=== PATIENT | male | born 1995 | race Caucasian/White ===

== ENCOUNTER 2024-06-28 09:39 | Emergency (ER) | payer BC, SELFPAY ==
--- NOTE | ~2024-06-28 | CT_ITS ---
CLINICAL INDICATION: Right flank pain COMPARISON: None. TECHNIQUE: Multiple contiguous axial images of the abdomen and pelvis were performed following the ad ministration of with 100 mL Omnipaque-350 intravenous contrast The dose-length product (DLP) was 308.40 mGy-cm. Automated exposure control and iterative reconstruction technique were employed. FINDINGS/OBSERVATIONS: Visualized lower thorax: The bilateral lung bases are clear. The heart is of normal size, without pericardial effusion. Small hiatal hernia is present. Liver: The liver enhances homogeneously measuring 16 cm in longitudinal dimension. Gallbladder and biliary system: The gallbladder is only minimally distended, and otherwise unremarkable. Pancreas: The pancreas enhances homogeneously without ductal dilatation. Spleen: The spleen enhances homogeneously and is not enlarged measuring 11 cm in longitudinal dimension. Kidneys: The bilateral kidneys enhance symmetrically without hydronephrosis or renal calculi. Adrenal glands: Unremarkable. Gastrointestinal tract: Mural thickening within the cecum and ascending colon (and within the transverse colon to a lesser de gree) with prominence of the adjacent vasa recta - findings suggesting a focal enteritis. Appendix: The air-filled appendix is of normal caliber (axial series, images 102 - 133). Vasculature: Unremarkable. No aneurysmal dilatation or significant stenosis. Lymph nodes: No pathologically enlarged or morphologically suspicious lymph nodes within the retroperitoneum or at the root of the mesentery. Pelvic structures: The bladder is only minimally distended, and otherwise unremarkable. The prostate gland is not enlarged. Body wall and musculoskeletal: Small fat-containing umbilical hernia. No significant degenerative disease within the lower thoracic or lumbosacral spine. IMPRESSION: Findings suggesting a focal enteritis within the proximal to mid colon. Follow-up to resolution is re commended. No obstructive uropathy. Normal appendix. Reviewed, dictated and finalized at location A. HYSICS SCIENTIST IMPRESSION: Findings suggesting a focal enteritis within the proximal to mid colon. Follow- up to resolution is recommended. No obstructive uropathy. Normal appendix.
[2024-06-28 09:46] VITALS: BP 121/73; PULSE 59; RESP 18; TEMP 36.5; O2SAT 100
[2024-06-28 11:30] VITALS: BP 118/71; PULSE 55; RESP 16; O2SAT 100
[2024-06-28 12:05] VITALS: BP 122/84; PULSE 61; RESP 16; O2SAT 100
[2024-06-28 12:12] LABS: Basophils Percent Auto 0.5 % (0.2-1.2); Eosinophils Absolute Auto 0.1 K/mm3 (0-0.3); Eosinophils Percent Auto 1.4 % (0-4.4); Hematocrit 41.4 % (42.0-52.0); Hemoglobin 14.1 g/dL (14.0-18.0); Immature Granulocyte Absolute 0.01 K/mm3 (0.00-0.031); Immature Granulocyte Percent A 0.3 % (0-0.5); Lymphocytes Absolute Auto 1.18 K/mm3 (0.9-3.2); Lymphocytes Percent Auto 32.2 % (18.3-44.2); Mean Corpuscular HGB Conc 34.1 g/dl (32-36); Mean Corpuscular Hemoglobin 31.5 pg (26-34); Mean Corpuscular Volume 92.4 fl (80-100); Mean Platelet Volume 9.2 fl (7.4-10.4); Monocytes Absolute Auto 0.4 K/mm3 (0.1-0.6); Monocytes Percent Auto 9.5 % (2.6-8.5); Neutrophils Absolute Auto 2.1 K/mm3 (1.3-6.7); Neutrophils Percent Auto 56.1 % (45.5-73.1); Platelet Count Result 265 k/mm3 (150-375); Red Blood Count 4.48 M/mm3 (4.6-6.20); Red Cell Distribution Width 12.3 % (11.5-14.5); White Blood Count 3.7 K/mm3 (4.5-10.0)
[2024-06-28] MEDS: KETOROLAC 15 MG/ML VIAL (*BKC) IV PUSH (12:25)
[2024-06-28 12:27] LABS: Alanine Aminotransferase 19 U/L (6-50); Albumin Level 4.7 g/dL (3.5-5.1); Alkaline Phosphatase 62 U/L (38-126); Anion Gap 5 mmol/L (4-12); Aspartate Amino Transferase 22 U/L (17-59); Bilirubin,Total 1.1 mg/dL (0.2-1.3); Blood Urea Nitrogen 10 mg/dL (9-20); Calcium 9.5 mg/dL (8.4-10.2); Carbon Dioxide 29 mmol/L (22-30); Chloride 103 mmol/L (98-107); Estimated CRCL calculation 127 ml/min; Estimated Glomerular Filt Rate > 60; Glucose 97 mg/dL (65-110); Lipase 88 U/L (23-300); Potassium 4.4 mmol/L (3.4-5.0); Sodium 137 mmol/L (137-145)
[2024-06-28 12:30] VITALS: BP 122/81; PULSE 57; RESP 16; O2SAT 100
[2024-06-28 14:11] LABS: Add Urine Microscopic? NO; Appearance Urine Clear (Clear); Bilirubin Urine Negative (Negative); Blood Urine Negative (Negative); Color Urine Yellow (Yellow); Glucose Urine UA Negative (Negative); Ketones Urine Negative (Negative); Leukocyte Esterase Ur Negative LEU/UL (Negative); Nitrate Urine Negative (Negative); Protein Urine Negative (Negative); Specific Grav Ur > 1.045 (1.001-1.035)
[2024-06-28 14:22] VITALS: BP 128/81; PULSE 63; RESP 16; O2SAT 100
--- NOTE | 2024-06-28 14:31 | ED_ITS ---
HPI - Abdominal Pain General Chief Complaint: Abdominal Pain Stated Complaint: abd pain/ back pain Time Seen by Provider: 06/28/24 11:52 History of Present Illness HPI narrative: Patient is a 28-year-old male who presents ER with abdominal pain. Fullness and cramping in the abdomen but has begun to hurt more on the left side. Has concerns for diverticulitis. Patient has history of celiac disease and had a biopsy on endoscopy 5 years ago. He is currently about to status care with [facility] because he has been having recurrent abdominal cramping. Reports has increased pain with eating and drinking. He has had decreased bowel movements due to inability to eat. No fevers or chills or sweats. No family history of inflammatory bowel disease in a direct relatives but has cousins with myriad of autoimmune conditions. His mother does have asymptomatic celiac. He reports he has been following a strict diet. Reports he may have had a sesame seed recently. He has taken some Gas-X with mild relief. Related Data Allergies Allergy/AdvReac Type Severity Reaction Status Date / Time No Known Allergies Allergy Unknown Verified 06/28/24 09:46 Review of Systems 2 Review of Systems: All systems reviewed & are unremarkable except as noted in HPI and below Constitutional: Constitutional: Reports no additional constitutional complaints ENT: Reports system reviewed and no additional complaints, except as documented Cardiovascular: Cardiovascular: Reports no additional cardiovascular complaints Respiratory: Respiratory: Reports no additional respiratory complaints Gastrointestinal: Gastrointestinal: Reports abdominal pain, Reports bloating, Reports diarrhea, Reports nausea and Denies vomiting Genitourinary: Genitourinary: Reports no additional male genitourinary complaints COUNTS INCLUDE 234 BEDS AT THE [facility] Past Medical History Medical History (Updated 06/28/24 @ 14:35 by Clarke Fenton MD) Celiac disease Surgical History Surgical History (Updated 06/28/24 @ 14:33 by Clarke Fenton MD) History of endoscopy Family History Family History (Updated 01/26/16 @ 23:19 by DOCTOR UNKNOWN) Father Hypertension Family history of elevated blood lipids Family history of coronary artery disease Grandparent Malignant neoplasm of prostate Family history of malignant neoplasm of male breast Social History Social History Smoking status: Never smoker Alcohol intake: never Exam 2 Narrative: GENERAL: Well-appearing, well-nourished, and in no acute distress. HEAD: Normocephalic, atraumatic. CHEST: Clear to auscultation. No respiratory distress. HEART: Regular rate and rhythm. Normal peripheral pulses. ABDOMEN: Soft, mildly tender palpation left lower quadrant and left upper quadrant, nondistended. EXTREMITIES: Normal range of motion. No edema. SKIN: Warm, dry, no rash. NEURO: Alert and oriented x3. PSYCH: Normal mood and affect. Course Course Emergency Course: CMP unremarkable. CBC with normal hemoglobin and mildly depressed white blood cell count. CT scan with focal enteritis. May be related to celiac, could be related to an undiagnosed inflammatory bowel disease. Will place on oral steroids for the next week to see if he has improvement. Recommend outpatient follow-up with GI. Vital Signs Vital signs: Vital Signs Temperature 97.7 F 06/28/24 09:46 Pulse Rate 59 L 06/28/24 09:46 Respiratory Rate 18 06/28/24 09:46 Blood Pressure 121/73 06/28/24 09:46 Pulse Oximetry 100 06/28/24 09:46 Temperature 97.7 F 06/28/24 09:46 Pulse Rate 63 06/28/24 14:22 Respiratory Rate 16 06/28/24 14:22 Blood Pressure 128/81 06/28/24 14:22 Pulse Oximetry 100 06/28/24 14:22 Oxygen Delivery Room Air 06/28/24 12:05 MDM - Abdominal Pain Lab Data 06/28/24 12:07 06/28/24 12:07 Labs: Lab Results 06/28/24 06/28/24 Range/Units 12:07 13:51 WBC 3.7 L (4.5-10.0) K/mm3 RBC 4.48 L (4.6-6.20) M/mm3 Hgb 14.1 (14.0-18.0) g/dL Hct 41.4 L (42.0-52.0) % MCV 92.4 (80-100) fl MCH 31.5 (26-34) pg MCHC 34.1 (32-36) g/dl RDW 12.3 (11.5-14.5) % Plt Count 265 (150-375) k/mm3 MPV 9.2 (7.4-10.4) fl Immature Gran % (Auto) 0.3 (0-0.5) % Neut % (Auto) 56.1 (45.5-73.1) % Lymph % (Auto) 32.2 (18.3-44.2) % Lake % (Auto) 9.5 H (2.6-8.5) % Eos % (Auto) 1.4 (0-4.4) % Baso % (Auto) 0.5 (0.2-1.2) % Lymph # (Auto) 1.18 (0.9-3.2) K/mm3 Lake # (Auto) 0.4 (0.1-0.6) K/mm3 Eos # (Auto) 0.1 (0-0.3) K/mm3 Baso # (Auto) 0.0 (0.0-0.1) K/mm3 Abs Immat Gran (auto) 0.01 (0.00-0.031) K/mm3 Absolute Neuts (auto) 2.1 (1.3-6.7) K/mm3 Absolute Nucleated RBC 0.000 (0.0-0.012) K/mm3 Nucleated RBC % 0.0 (0.0-0.2) % Sodium 137 (137-145) mmol/L Potassium 4.4 (3.4-5.0) mmol/L Chloride 103 (98-107) mmol/L Carbon Dioxide 29 (22-30) mmol/L Anion Gap 5 (4-12) mmol/L BUN 10 (9-20) mg/dL Creatinine 0.80 (0.7-1.3) mg/dL Estim Creat Clear Calc 127 ml/min Estimated GFR > 60 (59 - ) Glucose 97 (65-110) mg/dL Calcium 9.5 (8.4-10.2) mg/dL Total Bilirubin 1.1 (0.2-1.3) mg/dL AST 22 (17-59) U/L ALT 19 (6-50) U/L Alkaline Phosphatase 62 (38-126) U/L Total Protein 8.0 (6.3-8.2) g/dL Albumin 4.7 (3.5-5.1) g/dL Lipase 88 (23-300) U/L Urine Color Yellow (Yellow) Urine Appearance Clear (Clear) Urine pH 8.0 (5.0-9.0) Ur Specific [place] > 1.045 H (1.001-1.035) Urine Protein Negative (Negative) mg/dL Urine Glucose (UA) Negative (Negative) mg/dL Urine Ketones Negative (Negative) mg/dL Ur Blood (Man) Negative (Negative) Urine Nitrate Negative (Negative) Urine Bilirubin Negative (Negative) Urine Urobilinogen 1.0 (<2.0) mg/dL Leukocyte Esterase Rfl Negative (Negative) EVANGELIST/UL Imaging Data Radiologist's impression: ITS Impressions Abdomen/Pelvis CT 06/28/24 13:46 IMPRESSION: Findings suggesting a focal enteritis within the proximal to mid colon. Follow- up to resolution is recommended. No obstructive uropathy. Normal appendix. Discharge Plan Discharge Clinical Impression: Enteritis Patient Disposition: Home, Self-Care Condition: Stable Instructions: Enteritis (ED) Additional Instructions: Return to the emergency department if you develop severe abdominal pain, severe nausea and vomiting to the point where you are unable to keep down fluids, if you develop chest pain or difficulty breathing, blood in your stool, dizziness or fainting, or if you develop any other new or concerning symptoms as these could be signs of more serious medical illness. Try to stay well hydrated. Patient Language: Pashto Prescriptions: New dicyclomine 20 mg tablet 20 mg PO QID Qty: 20 0RF prednisone 50 mg tablet 50 mg PO DAILY Qty: 7 0RF ondansetron 4 mg tablet,disintegrating 4 mg PO Q6H PRN (Reason: nausea and vomiting) Qty: 10 0RF Follow-up/Referrals: Amber,Jayla Winters APRN [Primary Care Provider] - 1 Week Amador Contreras MD [Physician] - 1 Week
[2024-06-28] MEDS: ACETAMINOPHEN 325 MG TABLET 650 MG PO (14:49)
== END 2024-06-28 15:00 | disposition home or self-care (01) ==
PROVIDERS: Physician Assistant; Emergency Provider Emergency Medicine; PCP Nurse Practitioner
DX: K52.9 Noninfective gastroenteritis and colitis, unspecified (principal); K90.0 Celiac disease
CPT/HCPCS: 36415; 74177; 80053; 81003; 83690; 85025; 96374; 99284; A9270; J1885; Q9967

== ENCOUNTER 2024-07-19 02:32 | Day surgery (SDC) | payer BC, SELFPAY ==
[2024-07-12 11:26] VITALS: BMI 23.0
[2024-07-19 09:08] VITALS: BP 112/67; PULSE 63; RESP 16; TEMP 35.7; O2SAT 100
--- NOTE | 2024-07-19 09:19 | P.PNAN_ITS ---
Anes - Initial Pre Proc Eval Procedure: Operation Date: 07/19/24 10:30 Proposed Procedures p Esophagogastroduodenoscopy & Colonoscopy - Amador Contreras MD Date/Time: 07/19/24 09:19 Surgeon: Amador Contreras MD Pre Op Diagnosis: Celiac disease, abdominal distension, IBS Patient Data Age: 28 Gender: M Height: 1.83 m Weight: 73.5 kg Last Vital Signs Temp 35.7 C L 07/19/24 09:08 Pulse 63 07/19/24 09:08 Resp 16 07/19/24 09:08 BP 112/67 07/19/24 09:08 Pulse Ox 100 07/19/24 09:08 O2 Del Method Room Air 07/19/24 09:08 Allergies Allergy/AdvReac Type Severity Reaction Status Date / Time No Known Allergies Allergy Unknown Verified 07/19/24 09:06 Home Medications ?Medication ?Instructions ?Recorded ?Confirmed ?Type dicyclomine 20 mg tablet 20 mg PO QID #20 tabs 06/28/24 07/12/24 Rx ondansetron 4 mg disintegrating 4 mg PO Q6H PRN nausea and 06/28/24 07/19/24 Rx tablet vomiting #10 tabs lamotrigine 200 mg tablet 200 mg PO DAILY 07/01/24 07/19/24 History lumateperone 42 mg capsule 42 mg PO DAILY 07/01/24 07/19/24 History (Caplyta) quetiapine 100 mg tablet (Seroquel) 100 mg PO QHS 07/01/24 07/19/24 History Patient hx anesthesia problems: none Family hx anesthesia problems: none Results Review: All pre-operative results and documents have been reviewed as part of the pre- operative evaluation. [facility] Past Medical History Medical History (Updated 07/01/24 @ 12:57 by ANNABELLE Sheehan) IBS (irritable bowel syndrome) Abdominal pain Diarrhea Focal active colitis Celiac disease Surgical History Surgical History History of endoscopy Family History Family History Father Hypertension Family history of elevated blood lipids Family history of coronary artery disease Grandparent Malignant neoplasm of prostate Family history of malignant neoplasm of male breast Social History Social History Smoking status: Never smoker Alcohol intake: never Substance use: current Substance use type: marijuana Last use: once a week Living arrangements: with family Spiritual care concerns: No Anes - Eval Final PreProcedure Day of Procedure 07/19/24 09:19 Patient weight: normal Heart: regular rate and rhythm Lungs: clear to auscultation and normal air movement Airway: Mallampati scale class II Neurological: alert and oriented Last oral intake: >/= 8 hours ASA classification: II Emergent: no Anesthetic plan: proceed Anesthesia type and monitoring: general GIVS and standard monitoring Results Review: All pre-operative results and documents have been reviewed as part of the pre- operative evaluation. Informed Consent: The patient's anesthetic plan and its attendant risks and benefits were discussed with the patient/family/POA. Questions were solicited and answers provided to the satisfaction of the patient/family/POA.
[2024-07-19] MEDS: LACTATED RINGERS 1,000 ML 150 ML IV CONT (09:20)
--- NOTE | 2024-07-19 10:08 | SUR.OPER ---
EGD end 1004 COLONOSCOPY START 1008
[2024-07-19 10:18] VITALS: BP 90/41; PULSE 61; RESP 17; O2SAT 100
[2024-07-19 10:28] VITALS: BP 110/60; PULSE 61; RESP 14; O2SAT 100
[2024-07-19 10:38] VITALS: BP 116/74; PULSE 52; RESP 16; O2SAT 100
--- NOTE | 2024-07-20 07:53 | WPDHPUPDATE1 ---
History and Physical Update Update Date/Time: 07/20/24 07:53 History and Physical has been reviewed, including an updated exam of the patient. There are NO changes in the patient's condition. Risks, benefits, and alternatives have been discussed and questions answered. Patient agrees to proceed with procedure.
--- OUTSIDE RECORDS SUMMARY | 2024-07-22 11:16 | XMS_ITS | Clinical Summary ---
Author Organization [facility] Address [address] [place] [address] Care Team Providers Care Director Graphics Name Role Phone Pcp, No Primary Care Provider Unavailabl e Allergies No known active allergies Medications Medication Sig Dispensed Refills Start Date End Date Status cetirizine (ZYRTEC) 10 MG tablet Take 10 mg by mouth daily. Active montelukast (SINGULAIR) 10 MG tablet Take 1 tablet by mouth every evening. 30 tablet 5 02/08/2019 Active Active Problems Problem Noted Date Diagnosed Date Acute rhinitis 02/08/2019 Medical History Medical History Date Comments No known problems Allergy Social History Tobacco Use Types Packs/Day Years Used Date Smoking Tobacco: Never Smokeless Tobacco: Never Alcohol Use Standard Drinks/Week Comments Yes 4 (1 standard drink = 0.6 oz pur e alcohol) 4 GLASSES WEEKLY Inadequate Housing Answer Date Recorded Social Determinants: Housing (Overall Score Help er) 0 02/09/2019 Sex and Gender Information Value Date Recorded Sex Assigned at Not on file Gender Identity Not on file Sexual Orientation Not on file Obstetrics History Last Filed Vital Signs Vital Sign Reading Time Taken Comments Blood Pressure 108/60 02/08/2019 11:36 AM CDT Pulse 73 02/08/2019 11:36 AM CDT Temperature 36.8 ??C (98.2 ??F) 02/08/2019 11:36 AM C DT Respiratory Rate 17 02/08/2019 11:36 AM CDT Oxygen Saturation 98% 02/08/2019 11:36 AM CDT Inhaled Oxygen Concentration - - Weight 73.5 kg (162 lb 2.4 oz) 02/08/2019 11:36 AM CDT Height 180.3 cm (5' 11 ) 02/08/2019 11:36 AM CDT Body Mass Index 22.62 02/08/2019 11:36 AM CDT Plan of Treatment Health Maintenance Due Date Last Done Comments Depression Screening 2006 Varicella Vaccine (1 of 2 - 13+ 2-dose series) 12/31/2007 DTaP/Tdap/Td Vaccine (1 - Tdap) 2013 Hepatitis B Vaccine (1 of 3 - 19+ 3-dose series) 2013 COVID-19 Vaccine (1 - 2023-2 5 season) 2024 Influenza Vaccine (#1) 2024 HPV Vaccine Aged Out No longer eligi ble based on patient's age to complete this topic Meningococcal Vaccine Aged Out No sophie del eligible based on patient's age to complete this topic Pneumococcal Vaccine 0-49 Aged Out No longer eligible based on patient's age to complete this topic Care Teams Director Graphics Relationship Specialty Start Date End Date Pcp, No PCP - General 08/18/18
--- OUTSIDE RECORDS SUMMARY | 2024-07-22 11:16 | XMS_ITS | Referral Summary ---
Author Organization [facility] Address [address] [place] [address] Care Team Providers Care Chemist Steroids Name Role Phone Pcp, No Primary Care [...] Noted Date Diagnosed Date Acute rhinitis 02/08/2019 Social History Tobacco Use Types Packs/Day Years [...] on file Sexual Orientation Not on file Last Filed Vital Signs Vital Sign Reading [...] 02/08/2019 11:36 AM CDT Plan of Treatment Not on file Care Teams Chemist Steroids Relationship Specialty Start Date End Date Pcp, No PCP - General 08/18/18
--- OUTSIDE RECORDS SUMMARY | 2024-07-22 11:16 | XMS_ITS | Referral Summary ---
Author Organization [facility] Address [address] [place] [address] Care Team Providers Care Machine Folder Name Role Phone Unavailable Primary Care Provider Unavailabl e Source Comments [facility],non-owned Affiliates and Associated Physician Practices is amultiple site organization consisting of ambulatory clinics and hospital sitesin [place], [place], [place] and [place]. This disclosure is being madepursuant to the Care Everywhere program and may not contain all information available regarding this patient. Last updated 18.[facility] [employer] Allergies Active Allergy Reactions Criticality Noted Date Comments Penicillins Other 03/12/2023 Sneezing feels really bad. Medications * Be aware that medications may not be up to date on this document. Alwaysverify current medications with the patient. Medication Sig Dispensed Refills Start Date End Date Status azelastine-fluticason e (Dymista) 137-50 MCG/ACT nasal spray [place] 1 (one) spray into each nostril 2 times daily 05/15/2022 Active cetirizine (ZyrTEC) 10 MG tablet Take 1 (one) tablet by mouth at bedtime Active QUEtiapine (SEROquel) 200 MG tablet Take 1 (one) tablet by mouth at bedtime 09/19/2022 Active fluticasone propionate (Flonase Allergy Relief) 50 MCG/ACT nasal spray [place] 1 (one) spray into each nostril once daily Active montelukast (Singulair) 10 MG tablet Take 1 (one) tablet by mouth once daily 90 tablet 4 03/12/2023 Active Active Problems Problem Noted Date Diagnosed Date Recurrent sinusitis 03/12/2023 Deviated nasal septum 03/12/2023 Hypertrophy of both inferior nasal turbinates GERD with esophagitis 03/23/2020 03/12/2023 Immunizations Name Administration Dates Next Due DTaP VACCINE IM (6wk-6yrs) 10/09/1999,,07/08/1995,05/09,03/05/1995 FLU VACCINE QUAD IIV4 PF ID 08/02/2016 FLU VACCINE TRI IIV3 SPLIT P F IM (FLUVIRIN) 05/29/2012 HEP A PEDS 2 DOSE 09/27/2008,11/23/2004 HIB-PRP-OMP 3 DOSE 04/12/1996, 6,05/09/1995,03/05 Human Papilloma Virus [place] lent Vaccine 09/27/2021 INFLUENZA VACCINE, QUADR. (F LUZONE; FLULAVAL; FLUARIX; AFLURIA QUADRIVALENT; 6MO+), 0.5 ML (IIV4) 07/11/2018 MENINGOCOCCAL CONJUGATE (MCV4P) 09/24/2012,12/14 MMR 10/09/1999 MMR/VARICELLA 01/06/1996 POLIO IPV 10/09/1999 POLIO OPV 07/08/1995,05/09/1995,03/05/1995 TDAP (7yrs+) 06/30/2010,09/27/2008 VARICELLA 09/27/2008 Social History Tobacco Use Types Packs/Day Years Used Date Smoking Tobacco: Never Smokeless Tobacco: Never Alcohol Use Standard Drinks/Week Comments Yes 0 (1 standard drink = 0.6 oz pur e alcohol) occasionally Sex and Gender Information Value Date Recorded Sex Assigned at Not on file Gender Identity Not on file Sexual Orientation Not on file Last Filed Vital Signs Vital Sign Reading Time Taken Comments Blood Pressure 115/75 03/12/2023 12:52 PM CDT Pulse 66 03/12/2023 12:52 PM CDT Temperature - - Respiratory Rate - - Oxygen Saturation - - Inhaled Oxygen Concentration - - Weight 83.9 kg (185 lb) 03/12/2023 12:52 PM CDT Height 182.9 cm (6') 03/12/2023 12:52 PM CDT Body Mass Index 25.09 03/12/2023 12:52 PM CDT Plan of Treatment Not on file
--- OUTSIDE RECORDS SUMMARY | 2024-07-22 11:16 | XMS_ITS ---
Author Organization [facility] Address [address] [place] [address] Care Team Providers Care Knit Goods Washer Name Role Phone Jayla Clark NP Primary Care Provider Dk Mesa Unavailable [phone] REASON FOR VISIT Lamictal Dose Change Medications Medication SIG (Take, Route, Frequency, Duration) Notes Start Date End Date Status lamoTRIgine 200 MG 1 tablet Orally Once a day for 30 days Active QUEtiapine Fumarate 50 MG 1 tablet at be dtime Oral Once a day for 30 days Active Social History Sex Assigned At : Social History Observation Description Sex Assigned At Male Encounters Encounter Location Date Provider Diagnosis [facility] [address] [place] [address] 05/24/2024 Dk Boyle Bipolar disorder, current episode mixed, mild F31.61 Assessments Encounter Date Diagnosis (ICD Code) Assessment Notes Treatment Notes Treatment Clinical Notes Section Notes 05/24/2024 Bipolar disorder, current episode mixed, mild (ICD-10 - F31.61) Plan Of Treatment Medication Medication Name Sig Start Date Stop Date Notes lamoTRIgine 200 MG 1 tablet Orally Once a day for 30 days QUEtiapine Fumarate 50 MG 1 tablet at be dtime Oral Once a day for 30 days Next Appt Details Provider Name:Dk irving, 08/17/2024 11:45:00 AM, [address], [address], [place], [address], Progress Notes * BLANE RAMSEY PDOB:[birth year] (28 yo M)Acc No.[id number]:05/24/2024 Patient:?BLANE RAMSEY :1995???Age:28 Y???Sex:Male Address:[address] [place] [address], [address], [address] * Refills? Refill lamoTRIgine Tablet, 200 MG, Orally, 30 Tablet, 1 tablet, Once a day, 30 days, Refills=3 Refill QUEtiapine Fumarate Tablet, 50 MG, Oral, 30 Tablet, 1 tablet at bedtime, Once a day, 30 days, Refills=3 Subjective: * Chief Complaints: * ???Lamictal Dose Change * Medical History:? * Surgical History:? * Hospitalization/Major Diagno stic Procedure:? * Medications:? Objective: * Vitals:? * Physical Examination:? Assessment: * Assessment: 1.?Bipolar disorder, current episode mixed, mild - F31.61 (Primary)??? Plan: * Treatment: * Procedure Codes:? * true * Date:? Generated for Pancho thomas/Yehuda/Maximiliano on:?07/22/2024 11:16 AM CONTENT DESIGNER
--- OUTSIDE RECORDS SUMMARY | 2024-07-22 11:16 | XMS_ITS | Clinical Summary ---
Author Organization [facility] Address [address] [place] [address] Care Team Providers Care Opticianry Teacher Name Role Phone Unavailable Primary Care Provider Unavailabl e Source Comments [facility],non-owned Affiliates and Associated Physician Practices is amultiple site organization consisting of ambulatory clinics and hospital sitesin [place], [place], [place] and [place]. This disclosure is being madepursuant to the Care Everywhere program and may not contain all information available regarding this patient. Last updated 18.[facility] [employer] Allergies Active Allergy Reactions Criticality Noted Date Comments Penicillins Other 03/12/2023 Sneezing feels really bad. Medications * Be aware that medications may not be up to date on this document. Always verify current medications with the patient. Medication Sig Dispensed Refills Start Date End Date Status azelastine-fluticason e (Dymista) 137-50 MCG/ACT nasal spray [place] 1 (one) spray into each nostril 2 times daily 05/15/2022 Active cetirizine (ZyrTEC) 10 MG tablet Take 1 (one) tablet by mouth at bedtime Active QUEtiapine (SEROquel) 200 MG tablet Take 1 (one) tablet by mouth at bedtime 09/19/2022 Active fluticasone propionate (Flonase Allergy Relief) 50 MCG/ACT nasal spray [place] 1 (one) spray into each nostril once [...] 03/12/2023 12:52 PM CDT Plan of Treatment Health Maintenance Due Date Last Done Comments HIV SCREENING 2009 HEPATITIS C SCREENING 12/25/2012 HEPATITIS B VACCINE (1 of 3 - 19+ 3-dose series) 2013 DTAP/TDAP/TD VACCINES (8 - Td or Tdap) 06/30/2020 06/30/2010, 09/27/2008, 10/09/1999, Additional history exists HPV VACCINE (2 - Male 3-dose series) 10/25/2021 09/27/2021 COVID-19 VACCINE (1 - season) 2024 INFLUENZA VACCINE (#1) 2024 9, 08/02/2016, 05/29/2012 DEPRESSION SCREENING 06/30/2024 ZOSTER VACCINE (1 of 2) 2044 HIB VACCINE Completed 04/12/1996, 02/1996, 05/09/1995, Additional history exists MENINGOCOCCAL VACCINE Completed 09/24/2012, 010 MENINGOCOCCAL (Group B) VACCINE Aged Out No longer eligible based on patient's age to complete this topic PNEUMOCOCCAL VACCINE Aged Out No long er eligible based on patient's age to complete this topic
--- OUTSIDE RECORDS SUMMARY | 2024-07-22 11:16 | XMS_ITS | Encounter Summary ---
Author Organization [facility] Address [address] [place] [address] Care Team Providers Care Tank Washer Name Role Phone Pcp, No Primary Care Provider Unavailabl e Encounter Details Date Type Department Care Team (Late st Contact Info) Description 06/07/2019 Telephone [facility] [address] [facility] [facility] [address] [place] [address] Group, [facility] [address] [place] [address] Social History Tobacco Use Types Packs/Day Years Used Date Smoking Tobacco: Never Assessed Inadequate Housing Answer Date Recorded Social Determinants: Housing (Overall Score Help er) 0 02/09/2019 Sex and Gender Information Value Date Recorded Sex Assigned at Not on file Gender Identity Not on file Sexual Orientation Not on file documented as of this encounter Plan of Treatment Not on file documented as of this encounter Visit Diagnoses Not on filedocumented in this encounter Care Teams Tank Washer Relationship Specialty Start Date End Date Pcp, No PCP - General 08/18/18 documented as of this encounter
--- OUTSIDE RECORDS SUMMARY | 2024-07-22 11:16 | XMS_ITS | Patient Health Summary ---
Author Organization [facility] Address [address] [place] [address] Care Team Providers Care Roll Up Guider Operator Name Role Phone Unavailable Primary Care Provider Unavailabl e Note from [facility],non-owned Affiliates and Associated Physician Practices is amultiple site organization consisting of ambulatory clinics and hospital sitesin [place], [place], [place] and [place]. This disclosure is being madepursuant to the Care Everywhere program and may not contain all information available regarding this patient. Last updated 18.[facility] Allergies * Penicillins(Other) Medications * Be aware that medications may not be up to date on this document. Alwaysverify current medications with the patient. * azelastine-fluticasone (Dymista) 137-50 MCG/ACT nasal spray(Started 05/15/2022) [place] 1 (one) spray into each nostril 2 times daily * cetirizine (ZyrTEC) 10 MG tablet Take 1 (one) tablet by mouth at bedtime * QUEtiapine (SEROquel) 200 MG tablet(Started 09/19/2022) Take 1 (one) tablet by mouth at bedtime * fluticasone propionate (Flonase Allergy Relief) 50 MCG/ACT nasal spray [place] 1 (one) spray into each nostril once daily * montelukast (Singulair) 10 MG tablet(Started 03/12/2023) Take 1 (one) tablet by mouth once daily 4 refills by 03/11/2024 Active Problems Problem Noted Date Diagnosed Date Recurrent sinusitis 03/12/2023 Deviated nasal septum 03/12/2023 Hypertrophy of both inferior nasal turbinates GERD with esophagitis 03/23/2020 03/12/2023 Immunizations * DTaP VACCINE IM (6wk-6yrs)(Given 10/09/1999, 04/12/1996, 07/08/1995, 05/09/1995, 03/05/1995) * FLU VACCINE QUAD IIV4 PF ID(Given 08/02/2016) * FLU VACCINE TRI IIV3 SPLIT PF IM (FLUVIRIN)(Given 05/29/2012) * HEP A PEDS 2 DOSE(Given 09/27/2008, 11/23/2004) * HIB-PRP-OMP 3 DOSE(Given 04/12/1996, 07/08/1995, 05/09/1995, 03/05/1995) * Human Papilloma Virus Ninevalent Vaccine(Given 09/27/2021) * INFLUENZA VACCINE, QUADR. (FLUZONE; FLULAVAL; FLUARIX; AFLURIA QUADRIVALENT; 6MO+), 0.5 ML (IIV4)(Given 07/11/2018) * MENINGOCOCCAL CONJUGATE (MCV4P)(Given 09/24/2012, 12/14/2009) * MMR(Given 10/09/1999) * MMR/VARICELLA(Given 01/06/1996) * POLIO IPV(Given 10/09/1999) * POLIO OPV(Given 07/08/1995, 05/09/1995, 03/05/1995) * TDAP (7yrs+)(Given 06/30/2010, 09/27/2008) * VARICELLA(Given 09/27/2008) Social History Tobacco Use Types Packs/Day Years [...] Mass Index 25.09 03/12/2023 12:52 PM CDT Procedures * LA NASAL ENDOSCOPY,DX(Performed 03/12/2023) Performed for Recurrent sinusitis Results * LA NASAL ENDOSCOPY,DX (03/12/2023 1:29 PM CDT) Narrative Antelmo Phan MD - 03/12/2023 1:29 PM CDT Regan Che MD ? 03/12/2023 ??2:21 PM Procedure: Rigid Nasal Endoscopy Anesthesia: Bilateral Nasal Cavities sprayed with lidocaine and Neosynephrine Detail: ??Rigid nasal endoscopy performed bilaterally. ??Septum was deviated to the Left. ??Bilateral nasal cavity showed no evidence of acute sinusitis. Significant deviation of the L septum with a bony spur on cartilagenous portion of septum. Enlarged and edematous inferior turbinates. Antelmo Phan MD PROCEDURE/MINOR SHAKIRA GICAL ORDERABLES
--- OUTSIDE RECORDS SUMMARY | 2024-07-22 11:16 | XMS_ITS ---
Author Organization [facility] [employer] [facility] Address [address] [place] [address] Care Team Providers Care Library Page Name Role Phone Amber WEBB, Jayla Primary Care Provider Dk [place] Unavailable [phone] REASON FOR VISIT Med Management Update & Question Social History Sex Assigned At : Social History Observation Description Sex Assigned At Male Encounters Encounter Location Date Provider Diagnosis [facility] [address] [place] [address] 06/19/2024 Dk Boyle Plan Of Treatment Next Appt Details Provider Name:Dk irving, 08/17/2024 11:45:00 AM, [address], [address], [place], [address], Progress Notes * BLANE RAMSEY PDOB:[birth year] (28 yo M)Acc No.[id number]:06/19/2024 Patient:?BLANE RAMSEY :1995???Age:28 Y???Sex:Male Address:[address], [address], [place], [address] * true * Date:? Generated for Printi ng/Faxing/eTransmitting on:?07/22/2024 11:16 AM SPECIAL NEEDS BUS DRIVER
--- OUTSIDE RECORDS SUMMARY | 2024-07-22 11:17 | XMS_ITS | Clinical Summary ---
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
--- OUTSIDE RECORDS SUMMARY | 2024-07-22 11:17 | XMS_ITS ---
Author Organization [facility] Ping Communication Address [address] [facility] [address] [place] [address] Care Team Providers Care Social Media Editor Name Role Phone Jayla Clark NP Primary Care Provider Dk Mes[place] Unavailable [phone] Allergies No Known Allergies REASON FOR VISIT follow up visit, medication evaluation Medications Medication SIG (Take, Route, Frequency, Duration) Notes Start Date End Date Status lamoTRIgine 100 MG 1.5 tablet Orally On ce a day for 30 days Active QUEtiapine Fumarate 50 MG 1 tablet at be dtime Oral Once a day for 30 days Active Caplyta 42 MG 1 capsule Orally onc e daily for 30 days Active Montelukast Sodium 10 MG Oral for 30 Days Active Caplyta 42 MG 1 capsule Orally Onc e a day for 30 days 03/29/2024 Active Multivitamin Adults Oral 11/06/2023 Active Social History Tobacco Use: Social History Observation Description Date Details (start date - stop date) Never Smoker NA - NA Sex Assigned At : Social History Observation Description Sex Assigned At Male Tobacco Control (Standard) Question Answer Notes Tobacco use: Nonsmoker Vital Signs Blood pressure systolic 127 mm Hg 05/18/20 24 Blood pressure diastolic 81 mm Hg 024 Heart Rate 64 /min 05/18/2024 Height 71.00 in 05/18/2024 Weight 167.0 lbs 05/18/2024 BMI 23.29 kg/m2 05/18/2024 Height-cm 180.34 cm 05/18/2024 Weight-kg 75.75 kg 05/18/2024 Encounters Encounter Location Date Provider Diagnosis [facility] [place] [address] [place] [address] [place] [address] 05/18/2024 Dk Boyle Bipolar affective disorder, currently depressed, mild F31.31 ; Generalized anxiety disorder F41.1 and 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 Insomnia: - Patient reports improvement in sleep after reducing Seroquel (quetiapine) to 50 mg. Plan: - Maintain the current dose of 50 mg for a month. - Consider reducing to 25 mg if the patient continues to sleep well. - Refill prescription as needed. 2. Mood stabilization: - Patient reports positive response to Caplyta (lumateperone) 42 mg for depression and anxiety. Plan: - Continue the current dose. - Monitor for any side effects or changes in mood. 3. Bipolar disorder: - Patient is stable on Lamictal (lamotrigine) 150 mg, taken at night to avoid side effects. Plan: - Continue the current dose. - Monitor for any side effects or changes in mood. - Refill prescription as needed. 4. Weight loss: - Patient reports significant weight loss, likely due to improved appetite control with Caplyta and Lamictal. Plan: - Encourage the patient to maintain a healthy diet and exercise routine. - Monitor weight changes during follow-up visits. 5. Cognitive dulling: - Patient reports occasional word-finding difficulties, possibly related to Lamictal. Plan: - Monitor for any worsening of cognitive symptoms. - Consider adjusting the dose if necessary. 6. Follow-up: - Schedule a follow-up appointment in 3 months to assess the patient's progress and medication regimen. - If the patient experiences any issues or concerns before the next appointment, they should contact the provider. - Prior to the patient's relocation, ensure a 90-day supply of medications and refills for up to 6 months. - Encourage the patient to establish care with a new provider in their new location. 05/18/2024 Generalized anxiety disorder (ICD-10 - F41.1) stable 1. Insomnia: - Patient reports improvement in sleep after reducing Seroquel (quetiapine) to 50 mg. Plan: - Maintain the current dose of 50 mg for a month. - Consider reducing to 25 mg if the patient continues to sleep well. - Refill prescription as needed. 2. Mood stabilization: - Patient reports positive response to Caplyta (lumateperone) 42 mg for depression and anxiety. Plan: - Continue the current dose. - Monitor for any side effects or changes in mood. 3. Bipolar disorder: - Patient is stable on Lamictal (lamotrigine) 150 mg, taken at night to avoid side effects. Plan: - Continue the current dose. - Monitor for any side effects or changes in mood. - Refill prescription as needed. 4. Weight loss: - Patient reports significant weight loss, likely due to improved appetite control with Caplyta and Lamictal. Plan: - Encourage the patient to maintain a healthy diet and exercise routine. - Monitor weight changes during follow-up visits. 5. Cognitive dulling: - Patient reports occasional word-finding difficulties, possibly related to Lamictal. Plan: - Monitor for any worsening of cognitive symptoms. - Consider adjusting the dose if necessary. 6. Follow-up: - Schedule a follow-up appointment in 3 months to assess the patient's progress and medication regimen. - If the patient experiences any issues or concerns before the next appointment, they should contact the provider. - Prior to the patient's relocation, ensure a 90-day supply of medications and refills for up to 6 months. - Encourage the patient to establish care with a new provider in their new location. 05/18/2024 Other custodial (current) drug therapy (ICD-10 - Z79.899) Lamotrigine Lamotrigine has a serious rash requiring hospitalization and discontinue treatment including Lance Rudy syndrome rare case of toxic epidermal necrolysis and cache related deaths. Incidence with adjunct of epilepsy treatment 0.8% in 2 to 16 years old and 0.3% in adults, bipolar and other mood disorders incidence 0.8% this initial monotherapy and 0.13% as adjunctive treatment. Other risk factor may include concomitant use of valproate acid derivative or exceeding initial lamotrigine does or does as clinician recommendation; most life-threatening rash of occurring first 2 to 8 weeks of treatment with isolated cases after prolonged treatment; though benign may occur, discontinue treatment at first sign of rash unless clearly not a drug related; TC treatment may not prevent trash from becoming life-threatening or permanently disabling or disfiguring. Comment reaction include, nausea/vomiting, dizziness/vertigo, visual disturbances, somnolence, ataxia, pruritus/rash, pharyngitis, headache, rhinitis, diarrhea, fever, asthenia, insomnia, tremor, abdominal pain, cough, accidental injury, constipation, dysmenorrhea, incoordination, anxiety, seizures, irritability, anorexia, xerostomia, and photosensitivity. Serious reactions include: Rash, severe; Linton Rudy syndrome; toxic epidermal necrosis; injury edema, hypersensitivity reactions. Including fatal, multiple organ failure to safe fatal, rash with eosinophilia systemic symptoms, DIC, neutropenia, leukopenia, thrombocytopenia, pancytopenia, aplastic anemia, hemolytic anemia, i pancreatitis, hepatic failure, rhabdomyolysis, worsening of suicidal ideation, worsening of depression, cleft lip/palate [first trimester use] DO not Change Cosmetic, perfumes or soap for next 4 weeks. The patient was advice to take lamotrigine as prescribed the patient was instructed not to deviate from the prescription dosages. Stop lamotrigine is the first sign of rash. Patient was instructed to contact the office if any of the serious side effect develops. 1. Insomnia: - Patient reports improvement in sleep after reducing Seroquel (quetiapine) to 50 mg. Plan: - Maintain the current dose of 50 mg for a month. - Consider reducing to 25 mg if the patient continues to sleep well. - Refill prescription as needed. 2. Mood stabilization: - Patient reports positive response to Caplyta (lumateperone) 42 mg for depression and anxiety. Plan: - Continue the current dose. - Monitor for any side effects or changes in mood. 3. Bipolar disorder: - Patient is stable on Lamictal (lamotrigine) 150 mg, taken at night to avoid side effects. Plan: - Continue the current dose. - Monitor for any side effects or changes in mood. - Refill prescription as needed. 4. Weight loss: - Patient reports significant weight loss, likely due to improved appetite control with Caplyta and Lamictal. Plan: - Encourage the patient to maintain a healthy diet and exercise routine. - Monitor weight changes during follow-up visits. 5. Cognitive dulling: - Patient reports occasional word-finding difficulties, possibly related to Lamictal. Plan: - Monitor for any worsening of cognitive symptoms. - Consider adjusting the dose if necessary. 6. Follow-up: - Schedule a follow-up appointment in 3 months to assess the patient's progress and medication regimen. - If the patient experiences any issues or concerns before the next appointment, they should contact the provider. - Prior to the patient's relocation, ensure a 90-day supply of medications and refills for up to 6 months. - Encourage the patient to establish care with a new provider in their new location. Plan Of Treatment Medication Medication Name Sig Start Date Stop Date Notes lamoTRIgine 100 MG 1.5 tablet Orally On ce a day for 30 days QUEtiapine Fumarate 50 MG 1 tablet at be dtime Oral Once a day for 30 days Caplyta 42 MG 1 capsule Orally onc e daily for 30 days Treatment Notes Assessment Notes Generalized anxiety disorder stable Other longwall shearer operator (current) drug therapy L amotrigine Lamotrigine has a serious rash requiring hospitalization and discontinue treatment including Lance Rudy syndrome rare case of toxic epidermal necrolysis and cache related deaths. Incidence with adjunct of epilepsy treatment 0.8% in 2 to 16 years old and 0.3% in adults, bipolar and other mood disorders incidence 0.8% this initial monotherapy and 0.13% as adjunctive treatment. Other risk factor may include concomitant use of valproate acid derivative or exceeding initial lamotrigine does or does as clinician recommendation; most life-threatening rash of occurring first 2 to 8 weeks of treatment with isolated cases after prolonged treatment; though benign may occur, discontinue treatment at first sign of rash unless clearly not a drug related; TC treatment may not prevent trash from becoming life-threatening or permanently disabling or disfiguring. Comment reaction include, nausea/vomiting, dizziness/vertigo, visual disturbances, somnolence, ataxia, pruritus/rash, pharyngitis, headache, rhinitis, diarrhea, fever, asthenia, insomnia, tremor, abdominal pain, cough, accidental injury, constipation, dysmenorrhea, incoordination, anxiety, seizures, irritability, anorexia, xerostomia, and photosensitivity. Serious reactions include: Rash, severe; Linton Rudy syndrome; toxic epidermal necrosis; injury edema, hypersensitivity reactions. Including fatal, multiple organ failure to safe fatal, rash with eosinophilia systemic symptoms, DIC, neutropenia, leukopenia, thrombocytopenia, pancytopenia, aplastic anemia, hemolytic anemia, i pancreatitis, hepatic failure, rhabdomyolysis, worsening of suicidal ideation, worsening of depression, cleft lip/palate [first trimester use] DO not Change Cosmetic, perfumes or soap for next 4 weeks. The patient was advice to take lamotrigine as prescribed the patient was instructed not to deviate from the prescription dosages. Stop lamotrigine is the first sign of rash. Patient was instructed to contact the office if any of the serious side effect develops. Next Appt Details Follow Up: 3 Months, Reason: f/u bipolar d/o Provider Name:Dk irving, 08/17/2024 11:45:00 AM, [address], [facility] [address], [place], [address], Progress Notes * BLANE RAMSEY PDOB:[birth year] (28 yo M)Acc No.[id number]:05/18/2024 Patient:?BLANE RAMSEY P Provider:?MANI DAS :1995???Age:28 Y???Sex:Male Chato e:05/18/2024 Address:[address] [place] [address] [place] , [address] Pcp:Jayla Clark NP Subjective: * Chief Complaints: * ???Follow up visit, medicati on evaluation * HPI: ???Depression Screening:? Chief complaint - Medication adjustment and follow-up. the note is transcribed using speech recognition software. It is a reflection of a visit with the patient. It might have some inaccuracy, including medication names and transcribing errors, though efforts have been made to correct them. The patient reports feeling significantly better after reducing the Seroquel dose to 50 mg, with improved sleep quality. It took 11 days for the patient to achieve more than six hours of sleep, even with 15 mg of extended-release melatonin. The patient intends to maintain the 50 mg dose for a month before attempting a further reduction to 25 mg. The patient states that Caplyta is working effectively, with no depression or anxiety symptoms present. Lamictal at 150 mg appears to be the optimal dose for the patient. Initially, Lamictal caused some cognitive fogginess, but switching to nighttime administration alleviated this issue. The patient reports no noticeable side effects and notes improved appetite control and reduced hunger with the combination of Caplyta and Lamictal. As a result, the patient has experienced significant weight loss. The patient mentions experiencing temporary cognitive dulling when increasing the Lamictal dose, such as difficulty finding words while speaking. However, the patient does not feel that this is negatively impacting their emotions or mood. The patient reports feeling less anxious about displaying a normal range of emotions. ?PRIYA-7 (2018 Edition)?Feeling nervous, anxious, or on edge?Not at all,?Not being able to stop or control worrying?Not at all,?Worrying too much about different things?Not at all,?Trouble relaxing?Not at all,?Being so restless that it is hard to sit still?Not at all,?Becoming easily annoyed or irritable?Not at all,?Feeling afraid as if something awful might happen?Not at all,?If you checked any problems, how difficult have they made it for you to do your work, take care of things at home, or get along with other people??Not difficult at all,?Interpretation of Total?(0 to 4) No Anxiety.?[place]-Suicide Severity Rating Scale:?Suicide Risk (CSRS-screener)?in the past one month Have you wished you were or wished you could go to sleep and not wake up??No,?in the past one month Have you actually had any thoughts of killing yourself??No,?Have you ever done anything, started to do anything, or prepared to do anything to end your life??No.?Depression screening:?PHQ-9?Little interest or pleasure in doing things?Not at all,?Feeling down, depressed, or hopeless?Not at all,?Trouble falling or staying asleep, or sleeping too much?Not at all,?Feeling tired or having little energy?Not at all,?Poor appetite or overeating?Not at all,?Feeling bad about yourself or that you are a failure, or have let yourself or your family down?Not at all,?Trouble concentrating on things, such as reading the newspaper or watching television?Not at all,?Moving or speaking so slowly that other people could have noticed; or the opposite, being so fidgety or restless that you have been moving around a lot more than usual?Not at all,?Thoughts that you would be better off or of hurting yourself in some way?Not at all,?Total Score?0,?Interpretation?Minimal Depression.?Intervention?Depression Screening Findings?Negative,?Suicide Risk Assessment Performed?05/18/2024 .?History of Presenting Problem:?Anxiety?obsessive compulsive features, excessive hand cleansing , obsessive compulsive features, excessive hand cleansing.?Sleep disturbance?melatonin xr helps sleeps , melatonin xr helps sleeps.? * Medical History:? * Surgical History:? * Hospitalization/Major Diagno stic Procedure:? * Social History:?Tobacco Use:?Tobacco Control (Standard)?Tobacco use:?Nonsmoker.?Migrated Social History:?Migrated Social History: Alcohol Intake: Occasional 10/07/2022,Tobacco Years: Former smoker 10/07/2022. ???Miscellaneous:?Advance Care Planning?Are you your own decision-maker?Yes,?Do you have Power of Contracting Manager for Health or Medical??No.? * Medications:?TakingMultivita min Adults Tablet Oral Caplyta 42 MG Capsule 1 capsule Orally Once a day QUEtiapine Fumarate 100 MG Tablet 1 tablet at bedtime Oral Once a day lamoTRIgine 100 MG Tablet 1 tablet Orally Once a day Montelukast Sodium 10 MG Tablet Oral Taking Multivitamin Adults Tablet Oral Taking Caplyta 42 MG Capsule 1 capsule Orally Once a day Taking QUEtiapine Fumarate 100 MG Tablet 1 tablet at bedtime Oral Once a day Taking lamoTRIgine 100 MG Tablet 1 tablet Orally Once a day Taking Montelukast Sodium 10 MG Tablet Oral DiscontinuedlamoTRIgine 25 MG Tablet 1 tablet once a day for 14 days, 2 tablets once a day for 14 days Orally once daily Medication List reviewed and reconciled with the patientDiscontinued lamoTRIgine 25 MG Tablet 1 tablet once a day for 14 days, 2 tablets once a day for 14 days Orally once daily Medication List reviewed and reconciled with the patient * Allergies:?N.K.D.A.no[Allerg ies Verified] Objective: * Vitals:?BP:127/81mm Hg, HR:6 4/min, Wt:167.0lbs, Wt-k.75 kg, Ht: 71.00 in, Ht-cm: 180.34 cm, BMI:23.29Index, Body Surface Area: 1.95. * Examination: ???Psychiatry: ?Appearance:?well-groomed, well-nourished, ....?Affect / mood:?appropriate, full range.?Attention:?good.?Attitude:?cooperative.?Suicidal ideation:?none.?Memory status:?no impairment noted.?Degree of awareness of surroundings:?within normal limits.?Delusions:?no.?Hallucinations:?no.?Insight:?good.?Intellectual functioning:?no impairment noted.?Judgement:?good.?Orientation:?awake, alert and oriented x 3.?Perceptual disorders:?no perceptual disorder noted.?Psychomotor activity:?within normal range.?Speech / language:?appropriate pitch/modulation, clear and coherent, normal rate, volume, and articulation (RVR), proper grammar used.?Thought content:?appropriate.?Thought process:?intact.? Assessment: * Assessment: 1.?Bipolar affective disorde r, currently depressed, mild - F31.31 (Primary)???2.?Generalized anxiety disorder - F41.1???3.?Other custodial (current) drug therapy - Z79.899??? 1. Insomnia:- Patient report s improvement in sleep after reducing Seroquel (quetiapine) to 50 mg.Plan:- Maintain the current dose of 50 mg for a month.- Consider reducing to 25 mg if the patient continues to sleep well.- Refill prescription as needed.2. Mood stabilization:- Patient reports positive response to Caplyta (lumateperone) 42 mg for depression and anxiety.Plan:- Continue the current dose.- Monitor for any side effects or changes in mood.3. Bipolar disorder:- Patient is stable on Lamictal (lamotrigine) 150 mg, taken at night to avoid side effects.Plan:- Continue the current dose.- Monitor for any side effects or changes in mood.- Refill prescription as needed.4. Weight loss:- Patient reports significant weight loss, likely due to improved appetite control with Caplyta and Lamictal.Plan:- Encourage the patient to maintain a healthy diet and exercise routine.- Monitor weight changes during follow-up visits.5. Cognitive dulling:- Patient reports occasional word-finding difficulties, possibly related to Lamictal.Plan:- Monitor for any worsening of cognitive symptoms.- Consider adjusting the dose if necessary.6. Follow-up:- Schedule a follow-up appointment in 3 months to assess the patient's progress and medication regimen.- If the patient experiences any issues or concerns before the next appointment, they should contact the provider.- Prior to the patient's relocation, ensure a 90-day supply of medications and refills for up to 6 months.- Encourage the patient to establish care with a new provider in their new location. Plan: * Treatment: 2.?Generalized anxiety disor rajinder? Notes: stable?? 3.?Other longwall shearer operator (current) drug therapy? Notes: Lamotrigine Lamotrigine has a serious rash requiring hospitalization and discontinue treatment including Lance Rudy syndrome rare case of toxic epidermal necrolysis and cache related deaths. Incidence with adjunct of epilepsy treatment 0.8% in 2 to 16 years old and 0.3% in adults, bipolar and other mood disorders incidence 0.8% this initial monotherapy and 0.13% as adjunctive treatment. Other risk factor may include concomitant use of valproate acid derivative or exceeding initial lamotrigine does or does as clinician recommendation; most life-threatening rash of occurring first 2 to 8 weeks of treatment with isolated cases after prolonged treatment; though benign may occur, discontinue treatment at first sign of rash unless clearly not a drug related; TC treatment may not prevent trash from becoming life-threatening or permanently disabling or disfiguring. Comment reaction include, nausea/vomiting, dizziness/vertigo, visual disturbances, somnolence, ataxia, pruritus/rash, pharyngitis, headache, rhinitis, diarrhea, fever, asthenia, insomnia, tremor, abdominal pain, cough, accidental injury, constipation, dysmenorrhea, incoordination, anxiety, seizures, irritability, anorexia, xerostomia, and photosensitivity. Serious reactions include: Rash, severe; Linton Rudy syndrome; toxic epidermal necrosis; injury edema, hypersensitivity reactions. Including fatal, multiple organ failure to safe fatal, rash with eosinophilia systemic symptoms, DIC, neutropenia, leukopenia, thrombocytopenia, pancytopenia, aplastic anemia, hemolytic anemia, i pancreatitis, hepatic failure, rhabdomyolysis, worsening of suicidal ideation, worsening of depression, cleft lip/palate [first trimester use] DO not Change Cosmetic, perfumes or soap for next 4 weeks. The patient was advice to take lamotrigine as prescribed the patient was instructed not to deviate from the prescription dosages. Stop lamotrigine is the first sign of rash. Patient was instructed to contact the office if any of the serious side effect develops. ?? * Procedure Codes:?96648 BEHAV ASSMT W/SCORE & DOCD/STAND [id number] VISIT COMPLEXITY INHERENT TO ONGOING CARE RELATED TO A PATIENT'S SINGLE, SERIOUS CONDITION OR A COMPLEX CONDITION * Follow Up:?3 Months (Reason: f/u bipolar d/o) * Billing Information: * Visit Code:? 68301 OFFICE OUTPATIENT VISIT 25 MINUTES DETAILED HISTORY AND EXAM/MODERATE MEDICAL DECISION MAKING. * Procedure Codes:? 72401 BEHAV ASSMT W/SCORE & DOCD/STAND INSTRUMENT. G2211 VISIT COMPLEXITY INHERENT TO ONGOING CARE RELATED TO A PATIENT'S SINGLE, SERIOUS CONDITION OR A COMPLEX CONDITION. * MOTIVE GENERAL MANAGER Sign off status: Completed true * Provider:MANI WEBER Date:? Generated for Pancho thomas/Yehuda/Maximiliano on:?07/22/2024 11:16 AM AUTOMOTIVE GENERAL MANAGER History and Physical Notes * HPI (History of Present Illness) Category Sub-Category Detail Notes Category Not es History of Presenting Problem Anxiety obsessive compulsive feature s, excessive hand cleansing , obsessive compulsive features, excessive hand cleansing Sleep disturbance melatonin xr helps s leeps , melatonin xr helps sleeps Depression screening PHQ-9 Little inte rest or pleasure in doing things: Not at all Feeling down, depressed, or hopeless: No t at all Trouble falling or staying asleep, or sl eeping too much: Not at all Feeling tired or having little energy: N ot at all Poor appetite or overeating: Not at all Feeling bad about yourself o r that you are a failure, or have let yourself or your family down: Not at all Trouble concentrating on thi ngs, such as reading the newspaper or watching television: Not at all Moving or speaking so slowly that other people could have noticed; or the opposite, being so fidgety or restless that you have been moving around a lot more than usual: Not at all Thoughts that you would be b jozef off or of hurting yourself in some way: Not at all Total Score: 0 Interpretation: Minimal Depression Intervention Depression Screening Findings: N egative Suicide Risk Assessment Performed: 05/18 Depression Screening PRIYA-7 (2018 Edition) Feelin g nervous, anxious, or on edge: Not at all Not being able to stop or control worryi ng: Not at all Worrying too much about different things : Not at all Trouble relaxing: Not at all Being so restless that it is hard to sit still: Not at all Becoming easily annoyed or irritable: No t at all Feeling afraid as if something awful olvin ht happen: Not at all If you checked any problems, how difficult have they made it for you to do your work, take care of things at home, or get along with other people?: Not difficult at all Interpretation of Total: (0 to 4) No Anx iety [place]-Suicide Severity Rating Scale Suicide Risk (CSRS-screener) in the past one month Have you wished you were or wished you could go to sleep and not wake up?: No in the past one month Have y ou actually had any thoughts of killing yourself?: No ?Have you ever done anything , started to do anything, or prepared to do anything to end your life?: No Examination Category Sub-Category Detail Notes Category Not es Psychiatry Appearance: well-groomed, well-nourished , ... Attitude: cooperative Psychomotor activity: within normal rang e Attention: good Degree of awareness of surroundings: wit hin normal limits Orientation: awake, alert and reza ented x 3 Affect / mood: appropriate, full ra nge Speech / language: appropriate pitch/mo dulation, clear and coherent, normal rate, volume, and articulation (RVR), proper grammar used Insight: good Judgement: good Thought process: intact Thought content: appropriate Perceptual disorders: no perceptual diso rder noted Suicidal ideation: none Intellectual functioning: no impairment noted Memory status: no impairment noted Delusions: no Hallucinations: no
--- OUTSIDE RECORDS SUMMARY | 2024-07-22 11:17 | XMS_ITS | Patient Health Record ---
Author Organization [facility] [employer] [facility] Address [address] [facility] [address] [place] [address] Care Team Providers Care Outside Event Sales Specialist Name Role Phone Amber WEBB, Jayla Primary Care Provider Dk Mesa Unavailable [phone] Migration, Provider Unavailable Unavailable Allergies No Known Allergies Reason For Referral No Information Medications Medication SIG (Take, Route, Frequency, Duration) Notes Start Date End Date Status lamoTRIgine 200 MG 1 tablet Orally Once a day for 30 days Active Caplyta 42 MG 1 capsule Orally Onc e a day for 30 days 03/29/2024 Active Multivitamin Adults Oral 11/06/2023 Active QUEtiapine Fumarate 50 MG 1 tablet at be dtime Oral Once a day for 30 days Active Caplyta 42 MG 1 capsule Orally onc e daily for 30 days Active Montelukast Sodium 10 MG Oral for 30 Days Active Social History Tobacco Use: Social History Observation Description Date Details (start date - stop date) Never Smoker NA - NA Sex Assigned At : Social History Observation Description Sex Assigned At Male Tobacco Control (Standard) Question Answer Notes Tobacco use: Nonsmoker Problems Problem Type SNOMED Code ICD Code Onset Dates Problem Status W/U Status Risk Notes Problem Generalized anxiety disorder (90652099) Generalized anxiety disorder (F41.1) Active confirmed Problem Bipolar affective disorder, currently depressed, mild (288859424) Bipolar affective disorder, currently depressed, mild (F31.31) Active confirmed Vital Signs Heart Rate 64 /min 05/18/2024 Height-cm 180.34 cm 05/18/2024 Blood pressure diastolic 81 mm Hg 05/18/2024 Weight-kg 75.75 kg 05/18/2024 Height 71.00 in 05/18/2024 Blood pressure systolic 127 mm Hg 05/18/2024 Weight 167.0 lbs 05/18/2024 BMI 23.29 kg/m2 05/18/2024 Encounters Encounter Location Date Provider Diagnosis [facility] [employer] [facility] [address] [place] [address] 07/23/2023 Dk Boyle Bipolar disorder, current episode mixed, mild F31.61 and Generalized anxiety disorder F41.1 [facility] [employer] [facility] [address] [place] [address] 11/06/2023 Dk Boyle Generalized anxiety disorder F41.1 and Bipolar disorder, current episode mixed, mild F31.61 [facility] [address] [place] [address] 02/16/2024 Dk Boyle Bipolar affective disorder, currently depressed, mild F31.31 ; Generalized anxiety disorder F41.1 and Other alf (current) drug therapy Z79.899 [facility] [employer] [facility] [address] [place] [address] 03/15/2024 Dk Boyle Bipolar affective disorder, currently depressed, mild F31.31 ; Generalized anxiety disorder F41.1 and Other alf (current) drug therapy Z79.899 [facility] [employer] [facility] [address] [place] [address] 04/19/2024 Dk Boyle Bipolar affective disorder, currently depressed, mild F31.31 ; Generalized anxiety disorder F41.1 and Other alf (current) drug therapy Z79.899 [facility] [employer] [facility] [address] [place] [address] 05/18/2024 Dk Boyle Bipolar affective disorder, currently depressed, mild F31.31 ; Generalized anxiety disorder F41.1 and Other alf (current) drug therapy Z79.899 [facility] [employer] [facility] [address] [place] [address] 08/08/2023 Provider Migration [facility] [employer], [facility] [address] [place] [address] 09/08/2023 Provider Migration [facility], [facility] [address] [place] [address] 09/12/2023 Provider [facility], [facility] [address] [place] [address] 10/10/2023 [facility], [facility] [address] [place] [address] 10/17/2023 [facility], [facility] [address] [place] [address] 11/15/2023 Provider [facility], [facility] [address] [place] [address] 11/16/2023 [facility], [facility] [address] [place] [address] 02/18/2024 Dk Boyle Bipolar affective disorder, currently depressed, mild F31.31 [facility] [address] [place] [address] 03/29/2024 Dk Boyle [facility] [address] [place] [address] 03/25/2024 Dk Boyle Bipolar disorder, current episode mixed, mild F31.61 [facility] [address] [place] [address] 03/29/2024 Dk Boyle Bipolar affective disorder, currently depressed, mild F31.31 [facility] [address] [place] [address] 05/24/2024 Dk Boyle Bipolar disorder, current episode mixed, mild F31.61 [facility] [address] [place] [address] 06/19/2024 Dk Boyle Assessments Encounter Date Diagnosis (ICD Code) Assessment Notes Treatment Notes Treatment Clinical Notes Section Notes 02/18/2024 Bipolar affective disorder, currently depressed, mild (ICD-10 - F31.31) 04/19/2024 Bipolar affective disorder, currently depressed, mild (ICD-10 - F31.31) 1. Bipolar disorder with current hypomanic symptoms: - Patient reports Caplyta has been effective for anxiety and morning depression but not controlling the upswing, with a self-reported rating of 6.5-7 out of 10 for cuca. Plan: - Continue Caplyta 42 mg daily. - Add Lamotrigine for mood stabilization. Start with 25 mg daily for two weeks, then increase to 50 mg daily for two weeks, and then up to 100 mg daily. - Monitor for signs of Linton-Rudy syndrome and advise the patient to contact the provider if a rash develops. 2. Insomnia: - Patient reports needing 75-100 mg of Seroquel for 5.5-6 hours of sleep. Plan: - Continue quetiapine 100 mg nightly for sleep. - Refill prescription. 3. Anxiety and agitation: Plan: - Monitor anxiety and agitation levels while on the current medication regimen. - If symptoms worsen, consider adding Ativan temporarily. 4. Medication adherence and dose timing: Plan: - Encourage the patient to take medications consistently and at the same time each day. - Recommend starting Lamotrigine in the evening. 5. Follow-up and monitoring: Plan: - Schedule a follow-up appointment to assess the effectiveness of the added Lamotrigine and overall mood stabilization. - Utilize the patient portal for communication and updates on the patient's progress. 03/15/2024 Bipolar affective disorder, currently depressed, mild (ICD-10 - F31.31) 1. Bipolar Disorder: - Patient reports positive response to Caplyta and difficulty with Seroquel tapering. Plan: - Increase Caplyta to 21 mg for bipolar depression management. - Continue tapering Seroquel by decreasing 50 mg every two weeks. - Monitor mood stability and side effects. - Follow up in one month. 2. Rebound Insomnia: - Patient reports difficulty with sleep during Seroquel tapering. Plan: - Recommend melatonin for sleep support during Seroquel tapering. - Monitor sleep quality and adjust treatment as needed. 3. Seroquel Tapering: - Patient experienced challenges with simultaneous Caplyta initiation and Seroquel tapering. Plan: - Stagger Caplyta initiation and Seroquel tapering to minimize side effects. - Patient to reduce Seroquel by 50 mg next week. - Continue monitoring for side effects and mood stability. 03/25/2024 Bipolar disorder, current episode mixed, mild (ICD-10 - F31.61) 03/29/2024 Bipolar affective disorder, currently depressed, mild (ICD-10 - F31.31) 05/18/2024 Bipolar affective disorder, currently depressed, mild [...] a new provider in their new location. 05/24/2024 Bipolar disorder, current episode mixed, mild (ICD-10 - F31.61) 02/16/2024 Bipolar affective disorder, currently depressed, mild (ICD-10 - F31.31) 1. Bipolar disorder: - Patient reports no recent manic episodes but experiences mild depressive symptoms lasting 1.5 to 2 weeks. - Currently on Seroquel (quetiapine) with some side effects. Plan: - Transition to Caplyta (lumateperone) for better tolerability and fewer side effects. Start with 10.5 mg and decrease quetiapine to 200 mg for 2-3 weeks. Reassess and adjust dosage as needed. 2. Sleep disturbance: - Seroquel no longer effective for sleep; patient using extended-release melatonin 5 mg with success. Plan: - Continue melatonin for sleep support. Monitor sleep quality during the transition to Caplyta. 3. Constipation and bloating: - Likely related to Seroquel use. Plan: - Monitor gastrointestinal symptoms during the transition to Caplyta. Encourage the patient to maintain a high-fiber diet and regular exercise. 4. Urinary problems and sexual dysfunction: - Likely related to Seroquel use. Plan: - Monitor urinary and sexual function during the transition to Caplyta. Reassess and address any ongoing issues as needed. 5. Obsessive-compulsi ve tendencies: - Patient's girlfriend and colleagues have noticed possible OCD symptoms. Plan: - Continue therapy and monitor for any changes in obsessive-compulsi ve behaviors. Consider further evaluation and treatment if symptoms worsen or interfere with daily functioning. 6. . 7. Medication transition: - Patient agrees to taper off Seroquel and transition to Caplyta. Plan: - Provide samples of Caplyta and closely monitor the patient's response during the transition. Adjust dosage as needed and address any side effects or concerns that arise. Schedule a follow-up appointment in 4-6 weeks to reassess the patient's progress and overall well-being. 07/23/2023 Bipolar disorder, current episode mixed, mild (ICD-10 - F31.61) 07/23/2023 Generalized anxiety disorder (ICD-10 - F41.1) 11/06/2023 Bipolar disorder, current episode mixed, mild (ICD-10 - F31.61) 11/06/2023 Generalized anxiety disorder (ICD-10 - F41.1) 02/16/2024 Generalized anxiety disorder (ICD-10 - F41.1) 1. Bipolar disorder: - Patient reports no recent manic episodes but experiences mild depressive symptoms lasting 1.5 to 2 weeks. - Currently on Seroquel (quetiapine) with some side effects. Plan: - Transition to Caplyta (lumateperone) for better tolerability and fewer side effects. Start with 10.5 mg and decrease quetiapine to 200 mg for 2-3 weeks. Reassess and adjust dosage as needed. 2. Sleep disturbance: - Seroquel no longer effective for sleep; patient using extended-release melatonin 5 mg with success. Plan: - Continue melatonin for sleep support. Monitor sleep quality during the transition to Caplyta. 3. Constipation and bloating: - Likely related to Seroquel use. Plan: - Monitor gastrointestinal symptoms during the transition to Caplyta. Encourage the patient to maintain a high-fiber diet and regular exercise. 4. Urinary problems and sexual dysfunction: - Likely related to Seroquel use. Plan: - Monitor urinary and sexual function during the transition to Caplyta. Reassess and address any ongoing issues as needed. 5. Obsessive-compulsi ve tendencies: - Patient's girlfriend and colleagues have noticed possible OCD symptoms. Plan: - Continue therapy and monitor for any changes in obsessive-compulsi ve behaviors. Consider further evaluation and treatment if symptoms worsen or interfere with daily functioning. 6. . 7. Medication transition: - Patient agrees to taper off Seroquel and transition to Caplyta. Plan: - Provide samples of Caplyta and closely monitor the patient's response during the transition. Adjust dosage as needed and address any side effects or concerns that arise. Schedule a follow-up appointment in 4-6 weeks to reassess the patient's progress and overall well-being. 02/16/2024 Other alf (current) drug therapy (ICD-10 - Z79.899) 1. Bipolar disorder: - Patient reports no recent manic episodes but experiences mild depressive symptoms lasting 1.5 to 2 weeks. - Currently on Seroquel (quetiapine) with some side effects. Plan: - Transition to Caplyta (lumateperone) for better tolerability and fewer side effects. Start with 10.5 mg and decrease quetiapine to 200 mg for 2-3 weeks. Reassess and adjust dosage as needed. 2. Sleep disturbance: - Seroquel no longer effective for sleep; patient using extended-release melatonin 5 mg with success. Plan: - Continue melatonin for sleep support. Monitor sleep quality during the transition to Caplyta. 3. Constipation and bloating: - Likely related to Seroquel use. Plan: - Monitor gastrointestinal symptoms during the transition to Caplyta. Encourage the patient to maintain a high-fiber diet and regular exercise. 4. Urinary problems and sexual dysfunction: - Likely related to Seroquel use. Plan: - Monitor urinary and sexual function during the transition to Caplyta. Reassess and address any ongoing issues as needed. 5. Obsessive-compulsi ve tendencies: - Patient's girlfriend and colleagues have noticed possible OCD symptoms. Plan: - Continue therapy and monitor for any changes in obsessive-compulsi ve behaviors. Consider further evaluation and treatment if symptoms worsen or interfere with daily functioning. 6. . 7. Medication transition: - Patient agrees to taper off Seroquel and transition to Caplyta. Plan: - Provide samples of Caplyta and closely monitor the patient's response during the transition. Adjust dosage as needed and address any side effects or concerns that arise. Schedule a follow-up appointment in 4-6 weeks to reassess the patient's progress and overall well-being. 04/19/2024 Generalized anxiety disorder (ICD-10 - F41.1) stable 1. Bipolar disorder with current hypomanic symptoms: - Patient reports Caplyta has been effective for anxiety and morning depression but not controlling the upswing, with a self-reported rating of 6.5-7 out of 10 for cuca. Plan: - Continue Caplyta 42 mg daily. - Add Lamotrigine for mood stabilization. Start with 25 mg daily for two weeks, then increase to 50 mg daily for two weeks, and then up to 100 mg daily. - Monitor for signs of Linton-Rudy syndrome and advise the patient to contact the provider if a rash develops. 2. Insomnia: - Patient reports needing 75-100 mg of Seroquel for 5.5-6 hours of sleep. Plan: - Continue quetiapine 100 mg nightly for sleep. - Refill prescription. 3. Anxiety and agitation: Plan: - Monitor anxiety and agitation levels while on the current medication regimen. - If symptoms worsen, consider adding Ativan temporarily. 4. Medication adherence and dose timing: Plan: - Encourage the patient to take medications consistently and at the same time each day. - Recommend starting Lamotrigine in the evening. 5. Follow-up and monitoring: Plan: - Schedule a follow-up appointment to assess the effectiveness of the added Lamotrigine and overall mood stabilization. - Utilize the patient portal for communication and updates on the patient's progress. 05/18/2024 Generalized anxiety disorder (ICD-10 - F41.1) [...] a new provider in their new location. 03/15/2024 Generalized anxiety disorder (ICD-10 - F41.1) stable 1. Bipolar Disorder: - Patient reports positive response to Caplyta and difficulty with Seroquel tapering. Plan: - Increase Caplyta to 21 mg for bipolar depression management. - Continue tapering Seroquel by decreasing 50 mg every two weeks. - Monitor mood stability and side effects. - Follow up in one month. 2. Rebound Insomnia: - Patient reports difficulty with sleep during Seroquel tapering. Plan: - Recommend melatonin for sleep support during Seroquel tapering. - Monitor sleep quality and adjust treatment as needed. 3. Seroquel Tapering: - Patient experienced challenges with simultaneous Caplyta initiation and Seroquel tapering. Plan: - Stagger Caplyta initiation and Seroquel tapering to minimize side effects. - Patient to reduce Seroquel by 50 mg next week. - Continue monitoring for side effects and mood stability. 03/15/2024 Other alf (current) drug therapy (ICD-10 - Z79.899) 1. Bipolar Disorder: - Patient reports positive response to Caplyta and difficulty with Seroquel tapering. Plan: - Increase Caplyta to 21 mg for bipolar depression management. - Continue tapering Seroquel by decreasing 50 mg every two weeks. - Monitor mood stability and side effects. - Follow up in one month. 2. Rebound Insomnia: - Patient reports difficulty with sleep during Seroquel tapering. Plan: - Recommend melatonin for sleep support during Seroquel tapering. - Monitor sleep quality and adjust treatment as needed. 3. Seroquel Tapering: - Patient experienced challenges with simultaneous Caplyta initiation and Seroquel tapering. Plan: - Stagger Caplyta initiation and Seroquel tapering to minimize side effects. - Patient to reduce Seroquel by 50 mg next week. - Continue monitoring for side effects and mood stability. 05/18/2024 Other alf (current) drug therapy (ICD-10 - Z79.899) Lamotrigine [...] a new provider in their new location. 04/19/2024 Other alf (current) drug therapy (ICD-10 - Z79.899) Lamotrigine [...] of the serious side effect develops. 1. Bipolar disorder with current hypomanic symptoms: - Patient reports Caplyta has been effective for anxiety and morning depression but not controlling the upswing, with a self-reported rating of 6.5-7 out of 10 for cuca. Plan: - Continue Caplyta 42 mg daily. - Add Lamotrigine for mood stabilization. Start with 25 mg daily for two weeks, then increase to 50 mg daily for two weeks, and then up to 100 mg daily. - Monitor for signs of Linton-Rudy syndrome and advise the patient to contact the provider if a rash develops. 2. Insomnia: - Patient reports needing 75-100 mg of Seroquel for 5.5-6 hours of sleep. Plan: - Continue quetiapine 100 mg nightly for sleep. - Refill prescription. 3. Anxiety and agitation: Plan: - Monitor anxiety and agitation levels while on the current medication regimen. - If symptoms worsen, consider adding Ativan temporarily. 4. Medication adherence and dose timing: Plan: - Encourage the patient to take medications consistently and at the same time each day. - Recommend starting Lamotrigine in the evening. 5. Follow-up and monitoring: Plan: - Schedule a follow-up appointment to assess the effectiveness of the added Lamotrigine and overall mood stabilization. - Utilize the patient portal for communication and updates on the patient's progress. Plan Of Treatment Next Appt Details Provider Name:Dk irving, 08/17/2024 11:45:00 AM, [address], [facility] [address], [place], [address], Insurance Providers Payer Name Payer Address Payer Phone Subscriber Number Group Number Insured Name Patient Relationship to Insured Coverage Start Date Coverage End Date [facility] [address] [place] [address] [id number] BLANE RAMSEY Self - patient is the insured Medical (General) History Medical History History ICD Code Problems: Bipolar I disorder Generalized anxiety disorder Long-term current use of drug therapy ,
--- OUTSIDE RECORDS SUMMARY | 2024-07-22 11:17 | XMS_ITS | Encounter Summary ---
Author Organization [employer] Address [address] [place] [address] Care Team Providers Care Agriculture Extension Specialist Name Role Phone Unavailable Primary Care Provider Unavailabl e Encounter Details Date Type Department Care Team (Late st Contact Info) Description 01/04/2000 Outpatient Historical [facility] MRI DEPT Gatito Person MD [address] [place] [id number] Headache(784.0) (Primary Dx) Social History Tobacco Use Types Packs/Day Years Used Date Smoking Tobacco: Never Assessed Sex and Gender Information Value Date Recorded Sex Assigned at Not on file Legal Sex Male 3:42 AM [employer] Gender Identity Not on file Sexual Orientation Not on file documented as of this encounter Plan of Treatment Not on file documented as of this encounter Visit Diagnoses Diagnosis Headache(784.0)- Primary Headache documented in this encounter
--- OUTSIDE RECORDS SUMMARY | 2024-07-22 11:17 | XMS_ITS | Referral Summary ---
Author Organization [facility] Address [address] [place] [address] Phone Care Team Providers Care Grain Combiner Name Role Phone Eddie Cunningham MD Primary Care Provider [phone] Allergies No known active allergies Medications busPIRone (BUSPAR) 10 mg tabletIndicatio ns:Generalized Anxiety Disorder,taking as needed Take 1 tablet (10 mg total) by mouth 3 (three) times a day 90 tablet 11 02/15/2019 Active lansoprazole (PREVACID) 30 mg capsule Take 1 capsule (30 mg total) by mouth 2 (two) times a day 60 capsule 1 02/24/2020 Active Active Problems Problem Noted Date Diagnosed Date Fever 06/04/2018 Assessment & Plan (06/04/2018 5:05 PM INTERNATIONAL PROJECT ENGINEER): Symptomatic - Influenza swab - negative, Rapid strep - negative. CBC, CMP, Monospot today. Continue Advil or Tylenol as needed to control fever, body aches and joint pain. Stay well hydrated. Rest. If headache or bodyaches become too severe, go to the ER. Return for follow up to be determined post testing. Other headache syndrome 06/04/2018 Assessment & Plan (06/04/2018 5:05 PM INTERNATIONAL PROJECT ENGINEER): Symptomatic - Differential diagnosis includes but is not limited to migraine, tension headache, sinusitis, neck pain, dehydration, AVM, tumor, viral illness. BMI 24.0-24.9, adult 06/04/2018 Assessment & Plan (06/04/2018 5:06 PM INTERNATIONAL PROJECT ENGINEER): With BMI 25 or less this patient is a healthy weight for age Syncope and collapse 04/21/2018 Blunt head trauma 04/21/2018 BMI 25.0-25.9,adult 04/21/2018 Fatigue 03/18/2017 Assessment & Plan (03/18/2017 10:04 PM CDT): CBC,CMP, TSH, Testosterone level, and Bozena chapa IgG, Rest and hydrate Raised antibody titer 10/24/2011 Resolved Problems Problem Noted Date Diagnosed Date Resolved Date Body mass index (BMI) 24.0-24.9, adult 03/18/2017 04/21/2018 Immunizations Name Administration Dates Next Due Influenza, Quadrivalent, Spl it, Preservative Free, Intradermal 08/02/2016 Tdap 06/30/2010 Social History Tobacco Use Types Packs/Day Years Used Date Smoking Tobacco: Never Smokeless Tobacco: Never Alcohol Use Standard Drinks/Week Comments Yes 1 (1 standard drink = 0.6 oz pur e alcohol) Personal Safety Answer Date Recorded Getting School Help Needed Not on file 09/12 Sex and Gender Information Value Date Recorded Sex Assigned at Not on file Legal Sex Male 12:05 PM INTERNATIONAL PROJECT ENGINEER Gender Identity Male 06/15/2019 1:06 PM INTERNATIONAL PROJECT ENGINEER Sexual Orientation Straight 06/15/2019 1: 06 PM INTERNATIONAL PROJECT ENGINEER Last Filed Vital Signs Vital Sign Reading Time Taken Comments Blood Pressure 104/66 06/04/2018 2:10 PM INTERNATIONAL PROJECT ENGINEER Pulse 91 06/04/2018 2:10 PM INTERNATIONAL PROJECT ENGINEER Temperature 37.1 ??C (98.7 ??F) 06/04/2018 2:10 PM CS T Respiratory Rate 16 06/04/2018 2:10 PM INTERNATIONAL PROJECT ENGINEER Oxygen Saturation 98% 06/04/2018 2:10 PM INTERNATIONAL PROJECT ENGINEER Inhaled Oxygen Concentration - - Weight 78 kg (172 lb) 06/04/2018 2:10 PM INTERNATIONAL PROJECT ENGINEER Height 177.8 cm (5' 10 ) 06/04/2018 2:10 PM INTERNATIONAL PROJECT ENGINEER Body Mass Index 24.68 06/04/2018 2:10 PM INTERNATIONAL PROJECT ENGINEER Plan of Treatment Not on file Insurance [facility] HMO/PPO Address: [address] [place] [address] [facility] HMO/PPO Address: [address] [place] [address] [place] [address] Care Teams Grain Combiner Relationship Specialty Start Date End Date Eddie Cunningham MD [address] [facility] [address] [address] PCP - General Family Medicine 12/01/23
--- OUTSIDE RECORDS SUMMARY | 2024-07-22 11:17 | XMS_ITS | Clinical Summary ---
Author Organization [facility] Address [facility]. [place], [place] [address] [place] [address] Care Team Providers Care Egg Buyer Name Role Phone Jayla Clark ALL PURPOSE CLERK Primary Care Provider [phone] Allergies Active Allergy Reactions Criticality Noted Date Comments Amitriptyline Other (see comment) 12/25/2023 Depression with suicidal thoughts Medications cetirizine (ZYRTEC) 10 MG tablet Take 1 tablet (10 mg total) by mouth. Active fluticasone propionate (FLONASE) 50 MCG/ACT nasal spray 1 spray by Nasal route daily. Active Lumateperone Tosylate 42 MG Cap Active lamoTRIgine (LAMICTAL) 25 MG tablet Take 1 tablet (25 mg total) by mouth 2 (two) times daily. Active QUEtiapine (SEROQUEL) 50 MG tablet Take 1 tablet (50 mg total) by mouth nightly at bedtime. Active montelukast (SINGULAIR) 10 MG tabletIndication s:Allergic rhinitis, unspecified seasonality, unspecified trigger Take 1 tablet (10 mg total) by mouth nightly at bedtime. 90 tablet 1 05/06/2024 Active Active Problems Problem Noted Date Diagnosed Date Irritable bowel syndrome with diarrhea Family history of prostate cancer 12/25/2023 Family history of heart disease 12/25/2023 Acute pain of left shoulder 12/25/2023 Bipolar disorder, in full re mission, most recent episode mixed (CMS/HCC HHS/HCC) 12/25/2023 Encounters Date Type Department Care Team Description 07/19/2024 Scan [facility] SR[facility]CS Scanned, Doc [facility] Group EGD (SCAN); Colonoscopy Report (SCAN) 07/01/2024 Scan [facility] HEALTH INFO SRVCS Scanned, Doc Med Group 06/15/2024 Webtrekkhart Message Enc [facility] - [place] [address] [place] [address] Jayla Clark, ALL PURPOSE CLERK GI Referral 05/06/2024 2:20 PM SODA DISPENSER [facility] [place] [address] [place] [address] Jayla Clark, ALL PURPOSE CLERK Cough 05/06/2024 Travel from Last 3 Months Immunizations Name Administration Dates Next Due Dtap (Acel-Immune) 10/09/1999, 6,07/08/1995,05/09/1995, 03/05/1995 Fluzone Intradermal Quad (IIV4) 08/02/2016 HPV GARDASIL 9-VALENT 12/25/2023,09/27/2021 Hepatitis A (Havrix [address]) 09/27/2008, 005 Hib (PedvaxHIB)3 Dose 04/12/1996,07/08/1995,04/30,03/05/1995 Influenza (Generic) 05/29/2012 Influenza Adult (Generic) 07/11/2018 MMR (MMRII) 10/09/1999 Meningococcal (Menactra) 09/24/2012,12/14/2009 Polio IPV (Ipol) 10/09/1999 Polio Opv (Generic) 07/08/1995,05/09/1995,1994 Tdap (Adacel) 12/25/2023 Tdap (Generic) 06/30/2010,09/27/2008 Varicella (Varivax) 09/27/2008 Varicella/MMR (Proquad) 01/06/1996 Family History Medical History Relation Comments Mental Health Brother Depression... 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 went undiagnosed and was never further explored Hypertension Father Alcohol Abuse Maternal Grandfather alcoholic Cancer Maternal Grandfather Prostate Ca ncer - Cured Cancer Maternal Grandmother Breast Canc er - Terminal Mental Health Paternal Aunt 1 Bipolar, suicide Mental Health Paternal Aunt 2 Bipolar, mota of state Heart Disease Paternal Grandfather Triple Bypa ss at 38 Hypertension Paternal Grandfather Mental Health Paternal Grandmother Depression w/Psychotic Traits Relation Status Comments Brother Father Maternal Grandfather Maternal Grandmother Paternal Aunt 1 Paternal Aunt 2 Paternal Grandfather Paternal Grandmother Social History Tobacco Use Types Packs/Day Years Used Date Smoking Tobacco: Never Passive Smoke Exposure: Never Smokeless Tobacco: Never Tobacco Cessation:Counseling Given: Not Answered Comments:none Alcohol Use Standard Drinks/Week Comments Yes 8.3 (1 standard drink = 0.6 oz p ure alcohol) PHQ-2 Answer Date Recorded Patient Health Questionnaire-2 Score 0 12/25/2023 Sex and Gender Information Value Date Recorded Sex Assigned at Not on file Legal Sex Male 10:11 AM CDT Gender Identity Not on file Sexual Orientation Not on file Last Filed Vital Signs Vital Sign Reading Time Taken Comments Blood Pressure 114/74 05/06/2024 2:24 PM SODA DISPENSER Pulse 66 05/06/2024 2:24 PM SODA DISPENSER Temperature 36.8 ??C (98.2 ??F) 05/06/2024 2:24 PM CS T Respiratory Rate 18 05/06/2024 2:24 PM SODA DISPENSER Oxygen Saturation 97% 05/06/2024 2:24 PM SODA DISPENSER Inhaled Oxygen Concentration - - Weight 77.3 kg (170 lb 6.4 oz) 05/06/2024 2:24 P M SODA DISPENSER Height 182.9 cm (6') 05/06/2024 2:24 PM SODA DISPENSER Body Mass Index 23.11 05/06/2024 2:24 PM SODA DISPENSER Plan of Treatment Upcoming Encounters Date Type Department Care Team (Late st Contact Info) Description 08/16/2024 8:40 AM SODA DISPENSER Office Visit [facility] - [place] [address] [place] [address] Jayla Clark, TRACEY [address] [place] [address] Health Maintenance Due Date Last Done Comments Hepatitis B Vaccines (1 of 3 - 19+ 3-dose series) 2013 COVID-19 Vaccine (1 - 2023- season) 2024 HPV Vaccines (3 - Male 3-dose series) 03/18/2024 12/25/2023, 09/27/2021 Influenza Adult (#1) 2024 07/11/2018, 08/02/2016, 05/29/2012 Annual Physical 12/24/2024 12/25/2023 PHQ-2 (Physician Dozier) 12/24/2024 12/25/2023 DTaP, Tdap and Td Vaccines (9 - Td or Tdap) 12/24/2033 12/25/2023, 06/30/2010, 09/27/2008, Additional history exists Meningococcal Vaccine Completed 09/24/2012, 010 Hepatitis C Completed 12/25/2023 Meningococcal B Vaccine Aged Out No l onger eligible based on patient's age to complete this topic Pneumococcal Vaccine: Pediatrics (0 to 5 Years) and At-Risk Patients (6 to 64 Years) Aged Out No longer eligible based on patient's age to complete this topic RSV Immunizations Under 20 Months Aged Out No longer eligible based on patient's age to complete this topic Procedures Procedure Name Priority Date/Time Associated Diagnosis Comments COLONOSCOPY GENERIC (SCAN ORDER) 07/19/2024 EGD GENERIC (SCAN ORDER) 07/19/2024 HEPATITIS C ANTIBODY Routine 12/25/2023 11:39 AM CDT Need for hepatitis C screening test from Last 3 Months or Most Recently Relevant to Health Maintenance Results * EGD GENERIC (SCAN ORDER) (07/19/2024) 07/19/2024 [employer] [facility] [email or web address] Scanned SCANNING Final Resu lt * COLONOSCOPY GENERIC (SCAN ORDER) (07/19/2024) 07/19/2024 [employer] [facility] Scanned SCANNING Final Resu lt * HEPATITIS C ANTIBODY (12/25/2023 11:39 AM CDT) HEPATITIS C AB NON-REACTI VE NON-REACT AMANDA 12/25/2023 9:54 PM CDT [facility] Comment: ANTIBODIES TO HCV NOT DETECTED. DOES NOT EXCLUDE THE POSSIBILITY OF EXPOSURE TO HCV. 12/25/2023 11:3 9 AM CDT Jayla Clark NP LABORATORY Final Resul t [facility] [address] [place] [address], [id number] from Last 3 Months or Most Recently Relevant to Health Maintenance Insurance [facility] Care Teams Egg Buyer Relationship Specialty Start Date End Date Jayla Clark NP [address] [place] [address] PCP - General NURSE PRACTITIONER 12/25/23
--- OUTSIDE RECORDS SUMMARY | 2024-07-22 11:17 | XMS_ITS | Clinical Summary ---
Author Organization [facility] Address [address] [place] [address] Phone Care Team Providers Care Steward/Stewardess Second Name Role Phone Eddie Cunningham MD Primary Care Provider [phone] Allergies No known active allergies Medications busPIRone [...] 06/04/2018 Assessment & Plan (06/04/2018 5:05 PM HAND POTTER): Symptomatic - Influenza swab - negative, Rapid strep - negative. CBC, CMP, Monospot today. Continue Advil or Tylenol as needed to control fever, body aches and joint pain. Stay well hydrated. Rest. If headache or bodyaches become too severe, go to the ER. Return for follow up to be determined post testing. Other headache syndrome 06/04/2018 Assessment & Plan (06/04/2018 5:05 PM HAND POTTER): Symptomatic - Differential diagnosis includes but is not limited to migraine, tension headache, sinusitis, neck pain, dehydration, AVM, tumor, viral illness. BMI 24.0-24.9, adult 06/04/2018 Assessment & Plan (06/04/2018 5:06 PM HAND POTTER): With BMI 25 or less this patient [...] it, Preservative Free, Intradermal 08/02/2016 Tdap 06/30/2010 Surgical History Surgery Date Site/Laterality Comments OTHER SURGICAL HISTORY 2016 mononucleosus: Medical Management OTHER SURGICAL HISTORY 2009 torsed testicle: surgery OTHER SURGICAL HISTORY acne: medication Medical History Medical History Date Comments Hx Other Medical mononucleosus Hx Other Medical torsed testicle Hx Other Medical acne Family History Medical History Relation Name Comments Heart disease Father 2 Cardiovascular disease; Cause of : Cardiovascular disease Relation Name Status Comments Father 1 Father 2 Social History Tobacco Use Types Packs/Day Years Used Date Smoking Tobacco: Never Smokeless Tobacco: Never Alcohol Use Standard Drinks/Week Comments Yes 1 (1 standard drink = 0.6 oz pur e alcohol) Personal Safety Answer Date Recorded Getting School Help Needed Not on file 09/12 Sex and Gender Information Value Date Recorded Sex Assigned at Not on file Legal Sex Male 12:05 PM HAND POTTER Gender Identity Male 06/15/2019 1:06 PM HAND POTTER Sexual Orientation Straight 06/15/2019 1: 06 PM HAND POTTER Obstetrics History Last Filed Vital Signs Vital Sign Reading Time Taken Comments Blood Pressure 104/66 06/04/2018 2:10 PM HAND POTTER Pulse 91 06/04/2018 2:10 PM HAND POTTER Temperature 37.1 ??C (98.7 ??F) 06/04/2018 2:10 PM CS T Respiratory Rate 16 06/04/2018 2:10 PM HAND POTTER Oxygen Saturation 98% 06/04/2018 2:10 PM HAND POTTER Inhaled Oxygen Concentration - - Weight 78 kg (172 lb) 06/04/2018 2:10 PM HAND POTTER Height 177.8 cm (5' 10 ) 06/04/2018 2:10 PM HAND POTTER Body Mass Index 24.68 06/04/2018 2:10 PM HAND POTTER Plan of Treatment Health Maintenance Due Date Last Done Comments Hepatitis C Screening 1994 Regular Well Visit/Exam 18-64 2012 Depression Screening 08/26/2018 08/26/2017, 03/18/20 17 Covid-19 Vaccine ( season) 2024 03/29/2023, 10/25/2020 Influenza Vaccine (#1) 2024 , 07/11/2018, 08/02/2016, Additional history exists HPV Vaccines (3 - Male 3-dose series) 03/18/2024 12/25/2023, 09/27/2021 DTaP/Tdap/Td Vaccine (9 - Td or Tdap) 12/24/2033 12/25/2023, 06/30/2010, 09/27/2008, Additional history exists Varicella Vaccines Completed 09/27/2008, 01/06/1996 Pneumococcal vaccine <65 Aged Out No longer eligible based on patient's age to complete this topic Insurance [employer] Care Teams Steward/Stewardess Second Relationship Specialty Start Date End Date Eddie Cunningham MD [address] [facility] [place] [address] PCP - General Family Medicine 12/01/23
--- OUTSIDE RECORDS SUMMARY | 2024-07-22 11:17 | XMS_ITS | Continuity of Care Document ---
Author Organization [facility] Address [address] [place] [address] [address] [place] [address] Phone Care Team Providers Care Violin Maker Hand Name Role Phone Hernandez OD, Krishna Unavailable Unavailable Procedures Procedure Date Eye Exam & Treatment Refraction Eye Exam & Treatment Refraction Advance Directives Directive Yes / No Effective Date File Name No Information Encounters Encounter Description Practice Location Reason(s) For Visit Diagnoses Date Provider Providers Copied on Encounter [facility], [address] [place] [address] [address], [place], [place], [id number], tel:[phone] [facility] No Information 2-200 9 Hernandez OD Krishna. [address], [place], [place], [facility], . tel:[phone] [facility], [address] [place] [address] [address], [place], [place], [id number], tel:[phone] [facility] No Information 7-200 8 Hernandez OD Krishna. [address] , [address], [place], [place], [facility], [place]. tel:[phone] Family History Family Member Type Diagnosis Age At Onset No Information Payers Payer name Insurance type Covered alliance party ID Authoriza tion(s) No Information Social History Type Description Quantity Date Captured Comments Sex Male Smoking Status No Information Chief Complaint And Reason For Visit No Information Reason For Referral Reason For Referral No Information History Of Present Illness Encounter Date Complaint History Of Prese nt Illness No Information Functional Status Date Functional Assessmen t No Information Instructions Date Instruction Additional Infor mation No Information Assessments Type Assessment Date No Information Patient Care Teams Name Effective Dates (start - stop) Status Members No Information
--- OUTSIDE RECORDS SUMMARY | 2024-07-22 11:17 | XMS_ITS | Encounter Summary ---
Author Organization [facility] Address [facility] [place] [address] [place] [address] Care Team Providers Care New Accounts Banking Representative Name Role Phone Jayla Clark NP Primary Care Provider [phone] Encounter Details Date Type Department Care Team (Latest Contact Info) Description 01/17/2024 [facility] [place] [address] [place], [place] [id number] Jayla Clark, TERRITORY SALES EXECUTIVE [address] [place] [address] Sleep Medicine Referral Social History Tobacco Use Types Packs/Day Years Used Date Smoking Tobacco: Never Passive Smoke Exposure: Never Smokeless Tobacco: Never Comments:none Alcohol Use Standard Drinks/Week Comments Yes [...] as of this encounter Plan of Treatment Upcoming Encounters Date Type Department Care Team (Late st Contact Info) Description 08/16/2024 8:40 AM BRISTLE MACHINE OPERATOR Office Visit [facility] [place] [facility] [place] [address] [place] [address] Jayla Clark, TERRITORY SALES EXECUTIVE [address] [facility] [address] [place] [address] documented as of this encounter Visit Diagnoses Not on filedocumented in this encounter Additional Health Concerns Assessment Noted Time PHQ-9 Depression Total Score: 0 12/25/19 24 12:38 PM CDT documented as of this encounter Care Teams New Accounts Banking Representative Relationship Specialty Start Date End Date Jayla Clark, TERRITORY SALES EXECUTIVE [address] [place] [address] PCP - General NURSE PRACTITIONER 12/25/23 documented as of this encounter
== END 2024-07-19 10:51 | disposition home or self-care (01) ==
PROVIDERS: PCP Nurse Practitioner; Referring Provider Nurse Practitioner Family; Visit Provider Internal Medicine Gastroenterology
PROC: 0DJ08ZZ Inspection of Upper Intestinal Tract, Via Natural or Artificial Opening Endoscopic (ICD-10-PCS; CPT 45378; principal; 2024-07-19 10:30)
DX: K31.89 Other diseases of stomach and duodenum (principal); K90.0 Celiac disease; K58.9 Irritable bowel syndrome, unspecified; F12.90 Cannabis use, unspecified, uncomplicated; Z79.52 Long term (current) use of systemic steroids; Z80.3 Family history of malignant neoplasm of breast; Z80.42 Family history of malignant neoplasm of prostate; Z82.49 Family history of ischemic heart disease and other diseases of the circulatory system
CPT/HCPCS: 43239; 45380; 88305; J2003; J2704; J7120